=== PATIENT | male | born 1980 | race Caucasian/White ===

== ENCOUNTER 2017-04-29 19:53 | Emergency (ER) ==
[2017-04-29 20:07] VITALS: TEMP 99.6; BMI 28.2
--- NOTE | 2017-04-29 20:45 | ED.PDOC ---
General ED Provider: Dr. RALF CHRISTIANSON Chief Complaint: Non-specific Complaint Stated Complaint: Patient is a 36 year old male who comes to the Er with exposure to Biochemicals (herbicide) when he sprayed up it fall on his face and mouth He quickly washed his face and took a shower. He states that he panicked. Now better. Time Seen by Physician: 20:43 Mode of Arrival: Walk-In Information Source: Patient Exam Limitations: No limitations Primary Care Provider: ZARINA ORELLANA Nursing and Triage Documentation Reviewed and Agree: Yes Environmental Complaint Exam - Nuclear/Biologic/Chemical Complaint/Exam Patient Complains of: Reports: Chemical Exposure (Herbicide) Exposure Happened: Reports: Seconds Initial Severity: Mild Current Severity: Mild Length of Exposure: Seconds Associated Problems: Denies: Fire, Blast, Cold, Entrapment, Other Associated Signs and Symptoms: anxiety Decontamination: Yes Initial Findings: Present: Chemical Exposure Findings After Clothing Removed: Present: Chemical Exposure Differential Diagnoses: Pesticide exposure Review of Systems - Review Of Systems Constitutional: Reports: No symptoms Eyes: Reports: No symptoms Ears, Nose, Mouth, Throat: Reports: No symptoms Respiratory: Reports: No symptoms Cardiac: Reports: No symptoms GI: Reports: No symptoms : Reports: No symptoms Musculoskeletal: Reports: No symptoms Skin: Reports: No symptoms Neurological: Reports: No symptoms Endocrine: Reports: No symptoms Hematologic/Lymphatic: Reports: No symptoms All Other Systems: Reviewed and Negative Past Medical History - Past Medical History Previously Healthy: No Endocrine: Reports: None Cardiovascular: Reports: None Respiratory: Reports: None Hematological: Reports: None Gastrointestinal: Reports: GERD Genitourinary: Reports: Kidney stones Neuro/Psych: Reports: Migraine, Anxiety, Depression Musculoskeletal: Reports: None Cancer: Reports: Unknown - Surgical History General Surgical History: Reports: Hernia Repair (left inguinal) - Family History Family History: Reports: Unknown - Social History Smoking Status: Never smoker Hx Substance Use: No Alcohol Screening: None - Immunizations Tetanus Shot up to Date: Yes Physical Exam - Physical Exam Appearance: Well-appearing, No pain distress, Well-nourished Eyes: MACK, EOMI, Conjunctiva clear ENT: Ears normal, Nose normal, Oropharynx normal Respiratory: Airway patent, Breath sounds clear, Breath sounds equal, Respirations nonlabored Cardiovascular: RRR, Pulses normal, No rub, No murmur GI/: Soft, Nontender, No masses, Bowel sounds normal, No Organomegaly Musculoskeletal: Normal strength, ROM intact, No edema, No calf tenderness Skin: Warm, Dry, Normal color Neurological: Sensation intact, Motor intact, Reflexes intact, Cranial nerves intact, Alert, Oriented Psychiatric: Anxious Re-Evaluation - Re-Evaluation Time of Re-Evaluation: 22:40 Vital Signs Stable: Yes (134/88) Critical Care Note - Critical Care Note Total Time (mins): 0 Comments: Poison control called and did not recommend anything further if patient can swallow. Course - Course Vital Signs: Temp Pulse Resp BP Pulse Ox 04/29/17 19:54 99.6 F 93 H 20 150/107 H 97 Departure - Departure Time of Disposition: 20:46 Disposition: HOME SELF-CARE Discharge Problem: Accidental poisoning by herbicides Qualifiers: Encounter type: initial encounter Qualified Code(s): T60.3X1A - Toxic effect of herbicides and fungicides, accidental (unintentional), initial encounter Instructions: Chemical Skin Burn (ED) Condition: Stable Pt referred to PMD for follow-up: Yes Additional Instructions: Follow up with PCP in 3 days Allergies/Adverse Reactions: Allergies bacitracin [From Neosporin ([id number])] Adverse Reaction (Severe, Verified 04/29/17 20:02) Anaphylaxis bacitracin zinc [From Neosporin ([id number])] Adverse Reaction (Severe, Verified 04/29/17 20:02) Anaphylaxis neomycin sulfate [From Neosporin ([id number])] Adverse Reaction (Severe, Verified 04/29/17 20:02) Anaphylaxis polymyxin B [From Neosporin ([id number])] Adverse Reaction (Severe, Verified 04/29/17 20:02) Anaphylaxis Home Medications: Ambulatory Orders Alprazolam [Xanax] 1 mg PO TID 11/12/13 Sertraline HCl [Zoloft] 50 mg PO DAILY PRN 11/12/13 Ranitidine HCl [Zantac] 150 mg PO QDAC 06/21/14 Dextroamphetamine/Amphetamine [Adderall 20 mg Tablet] 20 mg PO BID 04/29/17 Disposition Discussed With: Patient
[2017-04-29 20:56] VITALS: BP 134/88
== END 2017-04-29 21:01 | disposition home or self-care (01) ==
LOC: ED 19:53
DX: T60.3X1A Toxic effect of herbicides and fungicides, accidental (unintentional), initial encounter (principal)
CPT/HCPCS: 99282

== ENCOUNTER 2017-08-14 21:37 | Emergency (ER) ==
[2017-08-14 21:46] VITALS: BP 164/98; TEMP 100.1; BMI 28.7
--- NOTE | 2017-08-14 22:06 | ED.PDOC ---
General ED Provider: Dr. ZARINA ORELLANA-ER Chief Complaint: Back Pain Stated Complaint: papa had a cough and now my lower back hurts--i think i pulled a muscle from coughing Time Seen by Physician: 22:05 Mode of Arrival: Walk-In Information Source: Patient Exam Limitations: No limitations Nursing and Triage Documentation Reviewed and Agree: Yes Reviewed sepsis parameters & appropriate labs ordered?: Yes System Inflammatory Response Syndrome: Not Applicable Sepsis Protocol: For patient's 13 years and over: Temp is 96.8 and below OR 101 and greater Pulse >90 BPM Resp >20/minute Acutely Altered Mental Status Are patient's symptoms suggestive of a new infection, such as: -Pneumonia -Skin, Soft Tissue -Endocarditis -UTI -Bone, Joint Infection -Implantable Device -Acute Abdominal Infection -Wound Infection -Meningitis -Blood Stream Catheter Infection -Unknown GI Complaint Exam - Abdominal Pain Complaint/Exam Onset: Gradual Duration: several hours Symptoms Are: Still present Timing: Constant Initial Severity: Mild Current Severity: Mild Radiates To: Reports: Back Character: Reports: Dull Alleviating: Reports: None Associated Signs and Symptoms: Reports: Back pain Abdominal Findings: Present: None Differential Diagnoses: UTI Review of Systems - Review Of Systems Constitutional: Reports: Fever, Weakness Eyes: Reports: No symptoms Ears, Nose, Mouth, Throat: Reports: No symptoms Respiratory: Reports: No symptoms Cardiac: Reports: No symptoms GI: Reports: No symptoms : Reports: Flank pain Musculoskeletal: Reports: Back pain Skin: Reports: No symptoms Neurological: Reports: No symptoms Endocrine: Reports: No symptoms Hematologic/Lymphatic: Reports: No symptoms All Other Systems: Reviewed and Negative Past Medical History - Past Medical History Previously Healthy: No Endocrine: Reports: None Cardiovascular: Reports: None Respiratory: Reports: None Hematological: Reports: None Gastrointestinal: Reports: GERD Genitourinary: Reports: Kidney stones Neuro/Psych: Reports: Migraine, Anxiety, Depression Musculoskeletal: Reports: None Cancer: Reports: Unknown - Surgical History General Surgical History: Reports: Hernia Repair (left inguinal) - Family History Family History: Reports: Unknown - Social History Smoking Status: Never smoker Hx Substance Use: No Alcohol Screening: None - Immunizations Tetanus Shot up to Date: (UNKNOWN) Physical Exam - Physical Exam Appearance: Well-appearing, No pain distress, Well-nourished Eyes: MACK, EOMI, Conjunctiva clear ENT: Ears normal, Nose normal, Oropharynx normal Neck: Supple Respiratory: Airway patent, Breath sounds clear, Breath sounds equal, Respirations nonlabored Cardiovascular: RRR, Pulses normal, No rub, No murmur GI/: Soft, Nontender, No masses, Bowel sounds normal, No Organomegaly Musculoskeletal: Limited ROM Skin: Warm Neurological: Sensation intact Psychiatric: Affect appropriate, Mood appropriate Interpretation - Radiology Interpretation Radiology Interpretation By: Radiologist Radiology Results: Negative Exam Interpreted: CT Scan Critical Care Note - Critical Care Note Total Time (mins): 0 Course - Course Orders, Labs, Meds: Lab Review 08/14/17 08/14/17 21:50 22:10 Urine Color Yellow Urine Clarity Clear Urine pH 6.0 Ur Specific [place] 1.025 Urine Protein Negative Urine Glucose (UA) Negative Urine Ketones Negative Urine Blood Negative Urine Nitrite Negative Urine Bilirubin Negative Urine Urobilinogen 0.2 Ur Leukocyte Esterase Negative Influenza A (Rapid) Positive by naat H Influenza B (Rapid) Negative by naat Orders Category Date Time Status MOLECULAR FLU A/B Stat LAB 08/14/17 22:10 Completed MOLECULAR GROUP A STREP Stat LAB 08/14/17 22:10 Completed URINALYSIS C & S IF INDICATED Stat LAB 08/14/17 21:[address] ABDOMEN/PELVIS WO CONTRAST Stat RADS 08/14/17 21:54 Completed Vital Signs: Temp Pulse Resp BP Pulse Ox 08/14/17 21:38 100.1 F H 106 H 24 164/98 H 97 Departure - Departure Time of Disposition: 22:44 Disposition: HOME SELF-CARE Discharge Problem: Influenza A, Bronchitis Instructions: Influenza (ED) Condition: Good Pt referred to PMD for follow-up: Yes Additional Instructions: augmentin 875mg bid x 7days--tessalon perles 200mg tid prn cough 30--fluids rest --recheck in 48hrs if not improved Allergies/Adverse Reactions: Allergies bacitracin [From Neosporin ([id number])] Adverse Reaction (Severe, Verified 08/14/17 21:46) Anaphylaxis bacitracin zinc [From Neosporin ([id number])] Adverse Reaction (Severe, Verified 08/14/17 21:46) Anaphylaxis neomycin sulfate [From Neosporin ([id number])] Adverse Reaction (Severe, Verified 08/14/17 21:46) Anaphylaxis polymyxin B [From Neosporin ([id number])] Adverse Reaction (Severe, Verified 08/14/17 21:46) Anaphylaxis Home Medications: Ambulatory Orders Alprazolam [Xanax] 1 mg PO TID 11/12/13 Sertraline HCl [Zoloft] 50 mg PO DAILY PRN 11/12/13 Ranitidine HCl [Zantac] 150 mg PO QDAC 06/21/14 Dextroamphetamine/Amphetamine [Adderall 20 mg Tablet] 20 mg PO BID 04/29/17 Disposition Discussed With: Patient
--- NOTE | 2017-08-14 22:32 | CT ---
EXAM: CT scan abdomen pelvis without contrast HISTORY: Left flank pain COMPARISON: CT scan pelvis 02/26/2016 FINDINGS: Contiguous axial images obtained through the abdomen pelvis without contrast utilizing 3-m m collimation. Sagittal and coronal reconstructions were imaged and reviewed.. The visualized lung bases are clear. The gallbladder is contracted. The liver, pancreas, spleen and adrenal glands have normal unenhanced CT appearance. The abdominal aorta is normal in course and caliber. The left kidn ey is morphologically normal. Redemonstrated is a stable dense cortical calcification lower pole rig ht kidney.. The prostate gland. Normal in size. There is no free fluid or inflammatory changes. Th ere is umbilical hernia containing only fat. IMPRESSION: No acute intra-abdominal findings.
== END 2017-08-14 22:53 | disposition home or self-care (01) ==
LOC: ED 21:37
DX: J09.X2 Influenza due to identified novel influenza A virus with other respiratory manifestations (principal); J40 Bronchitis, not specified as acute or chronic
CPT/HCPCS: 81001; 87502; 87651; 99283